=== PATIENT | female | born 1955 | race Caucasian/White ===

== ENCOUNTER → 2018-07-21 | Outpatient (CLI) | payer SELFPAY | LOC: LAB 16:56 | DX: Z51.81 Encounter for therapeutic drug level monitoring (principal); Z79.899 Other long term (current) drug therapy; R56.9 Unspecified convulsions ==

== ENCOUNTER → 2018-10-20 | Outpatient (CLI) | payer SELFPAY ==
[2018-10-20 14:38] LABS: HEMATOCRIT 45.2 % (37.0-47.0); HEMOGLOBIN 14.9 g/dL (12.5-16.0); MEAN PLATELET VOLUME 9.3 fl (7.4-10.4); RED BLOOD COUNT 4.89 M/mm3 (4.10-5.30); RED CELL DISTRIBUTION WIDTH 12.2 % (11.5-14.5); WHITE BLOOD COUNT 7.7 K/mm3 (4.8-10.8)
== END ==
LOC: LAB 14:19
PROVIDERS: General Practice
DX: G40.501 Epileptic seizures related to external causes, not intractable, with status epilepticus (principal); R68.89 Other general symptoms and signs